=== PATIENT | female | born 1950 | race Caucasian/White ===

== ENCOUNTER 2021-08-01 18:39 | Emergency (ER) | payer OTHER ==
[~2021-08-01] VITALS: Ht 162.6 cm; Wt 99.8 kg
[~2021-08-01 18:39] MED LIST: AMLO5; Bactrim Ds Tab1 EACH PO; ESTRTP; Keflex500 MG PO; METF500; METO25ER; Norco 5-325 Ta1 EACH PO; PANT20
[2021-08-01] MEDS ORDERED: METO100ER PO (18:57)
[2021-08-01] MEDS ORDERED: OXYB5 PO (18:58)
[2021-08-01] MEDS ORDERED: PANTOPRAZOLE SO40 M2 PO (18:58)
[2021-08-01] MEDS ORDERED: PROZAC20 M9 PO (18:58)
[2021-08-01] MEDS ORDERED: SULTRIDS PO (19:00)
[2021-08-01] MEDS ORDERED: CEPH500 PO (19:00)
== END 2021-08-01 19:04 | disposition home or self-care (01) ==
LOC: ER 18:39
DX: I87.2 Venous insufficiency (chronic) (peripheral) (principal); L03.116 Cellulitis of left lower limb; L03.115 Cellulitis of right lower limb; E11.9 Type 2 diabetes mellitus without complications; I10 Essential (primary) hypertension; K21.9 Gastro-esophageal reflux disease without esophagitis; L97.329 Non-pressure chronic ulcer of left ankle with unspecified severity; L97.319 Non-pressure chronic ulcer of right ankle with unspecified severity; Z79.84 Long term (current) use of oral hypoglycemic drugs; Z79.899 Other long term (current) drug therapy
CPT/HCPCS: A9270

== ENCOUNTER 2021-09-19 02:57 | Emergency (ER) | payer MEDICARE ==
[~2021-09-19] VITALS: Ht 162.6 cm; Wt 108.9 kg
[~2021-09-19 02:57] MED LIST changes: +CEPH500 PO; +METO100ER PO; +OXYB5 PO; +PANTOPRAZOLE SO40 M2 PO; +PROZAC20 M9 PO; +SULTRIDS PO
== END 2021-09-19 09:51 | disposition home or self-care (01) ==
LOC: ER 02:57
DX: K21.9 Gastro-esophageal reflux disease without esophagitis (principal); K44.9 Diaphragmatic hernia without obstruction or gangrene; I10 Essential (primary) hypertension; F17.210 Nicotine dependence, cigarettes, uncomplicated; F31.9 Bipolar disorder, unspecified; Z79.899 Other long term (current) drug therapy
CPT/HCPCS: 71046; A9270

== ENCOUNTER 2021-10-08 09:37 | Emergency (ER) | payer MEDICARE, OTHER ==
[~2021-10-08] VITALS: Ht 162.6 cm; Wt 98.0 kg
[~2021-10-08 09:37] MED LIST changes: -AMLO5; +AMLO5 PO
[2021-10-08 10:58] LABS: BASOPHILS ABSOLUTE AUTO 0.07 K/mm3 (0.00-0.23); BASOPHILS PERCENT AUTO 1 % (0-2); EOSINOPHILS ABSOLUTE AUTO 0.36 K/mm3 (0.00-0.68); EOSINOPHILS PERCENT AUTO 4 % (0-6); Hematocrit 37.8 % (33.0-51.0); Hemoglobin 11.9 g/dL (11.5-16.0); IMMATURE GRAN ABSOLUTE AUTO 0.06 K/mm3 (0.00-0.10); IMMATURE GRAN PERCENT AUTO 1 % (0-1); LYMPHOCYTES ABSOLUTE AUTO 2.28 K/mm3 (0.84-5.20); LYMPHOCYTES PERCENT AUTO 28 % (21-46); MONOCYTES ABSOLUTE AUTO 0.71 K/mm3 (0.16-1.47); MONOCYTES PERCENT AUTO 9 % (4-13); Mean Corpuscular HGB 26.7 pg (26.0-34.0); Mean Corpuscular HGB Conc 31.5 g/dL (31.5-36.5); Mean Corpuscular Volume 85 fL (80-100); Mean Platelet Volume 9.9 fL (9.1-12.4); NEUTROPHILS ABSOLUTE AUTO 4.61 K/mm3 (1.96-9.15); NEUTROPHILS PERCENT AUTO 57 % (41-73); Platelet Count 378 K/mm3 (150-400); RDW Coefficient Variation 14.2 % (11.7-14.2); Red Blood Cell Count 4.45 M/mm3 (3.80-5.20); White Blood Cell Count 8.09 K/mm3 (4.00-11.30)
[2021-10-08 11:17] LABS: Albumin, Blood 3.2 g/dL (3.4-5.0); Albumin/Globulin Ratio 0.8 (0.8-1.8); Bilirubin, Total 0.3 mg/dL (0.1-1.0); Bun/Creatinine Ratio 18.8 (12.0-20.0); Calcium, Blood 9.1 mg/dL (8.5-10.1); Creatinine, Blood 0.69 mg/dL (0.40-1.00); Globulin, Blood 3.9 g/dL (2.2-4.0); Total Protein, Blood 7.1 g/dL (6.4-8.2)
[2021-10-08] MEDS ORDERED: Prednisone20 MG PO (13:10)
[2021-10-08] MEDS ORDERED: ALBU90OI INH (13:10)
== END 2021-10-08 13:47 | disposition home or self-care (01) ==
LOC: ER 09:37
PROVIDERS: Student in an Organized Health Care Education/Training Program
DX: R06.2 Wheezing (principal); R05.9 Cough, unspecified; R06.00 Dyspnea, unspecified; I10 Essential (primary) hypertension; K21.9 Gastro-esophageal reflux disease without esophagitis; F17.210 Nicotine dependence, cigarettes, uncomplicated; Z79.899 Other long term (current) drug therapy
CPT/HCPCS: 36415; 71045; 80053; 85025; 94640; 94664